=== PATIENT | female | born 1975 ===

== ENCOUNTER 2018-05-30 14:29 | Outpatient (CLI) | payer OTHER ==
[~2018-05-30] VITALS: Ht 160 cm; Wt 68.0 kg
== END 2018-05-30 14:45 | disposition home or self-care (01) ==
LOC: OFIC 805 14:29
DX: J34.2 Deviated nasal septum (principal); J30.89 Other allergic rhinitis; J34.3 Hypertrophy of nasal turbinates; K21.9 Gastro-esophageal reflux disease without esophagitis; R09.81 Nasal congestion